=== PATIENT | female | born 1975 | race Caucasian/White ===

== ENCOUNTER 2024-04-01 04:22 | Emergency (ER) | payer BC, SELFPAY ==
--- OUTSIDE RECORDS SUMMARY | 2024-04-01 04:24 | XMS_ITS | Referral Summary ---
Author Organization [place] Address [address] [facility] 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 Active Ascorbic Acid (VITAMIN C PO) Vitamin C with Iron, OTC Active omeprazole (PRILOSEC) 40 MG capsule Take 20 mg by mouth 2 times daily Active clonazePAM (KLONOPIN) 0.5 MG tablet Take 1 tablet (0.5 mg) by mouth as needed for anxiety 0 Active levothyroxine (SYNTHROID/LEVOTHR OID) 150 MCG tablet Take 1 tablet by mouth daily 3 Active amitriptyline (ELAVIL) 10 MG tablet Take 1 tablet by mouth daily 3 Active metFORMIN (GLUCOPHAGE XR) 500 MG 24 hr tablet Take 4 tablets by mouth daily 3 Active losartan (COZAAR) 50 MG tablet Take 1 tablet by mouth daily 3 Active lamoTRIgine (LAMICTAL) 100 MG tabletIndications: 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),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 Provider to review Generalized nonconvulsive ep ilepsy with intractable epilepsy 08/03/2012 Generalized anxiety disorder 08/03/2012 Resolved Problems Problem Noted Date Diagnosed Date Resolved Date Paronychia 08/03/2012 08/03/2012 Immunizations Name Administration Dates Next Due COVID-19 Monovalent 18+ (Moderna) 01/27/2021,01/2021,05/08/2020 DTAP (<7y) 04/03/1979, 9,01/24/1978, 978 Influenza (IIV3) PF 11/23/2009 Influenza Vaccine >6 months,quad, PF 11/2018,03/30/2018,12/23/2016, 015 MMR 01/30/1979 OPV, trivalent, live 04/03/1979,01/24/1978,11/25 TDAP Vaccine (Adacel) 10/04/2016 Social History Tobacco Use Types Packs/Day Years Used Date Smoking Tobacco: Never Smokeless Tobacco: Never Tobacco Cessation:Counseling Given: No Alcohol Use Standard Drinks/Week Comments Not Asked 0 (1 standard drink = 0.6 oz pur e alcohol) PHQ-2 Answer Date Recorded PHQ-2 Score 1 01/29/2024 Adolescent Education Answer Date Record ed Getting School Help Needed Not on file 12/09 Comments No Sex and Gender Information Value Date Recorded Sex Assigned at Female 05/03/2020 3:04 PM TEACHING DIETITIAN Legal Sex Female 3:38 AM TEACHING DIETITIAN Gender Identity Female 05/03/2020 3:04 PM TEACHING DIETITIAN Sexual Orientation Straight 05/03/2020 3: 04 PM TEACHING DIETITIAN Last Filed Vital Signs Vital Sign Reading Time Taken Comments Blood Pressure 129/83 01/29/2024 8:25 AM TEACHING DIETITIAN Pulse 95 01/29/2024 8:25 AM TEACHING DIETITIAN Temperature 36.4 C (97.5 F) 01/29/2024 8:25 AM TEACHING DIETITIAN Respiratory Rate 16 01/29/2024 8:25 AM TEACHING DIETITIAN Oxygen Saturation 98% 01/29/2024 8:25 AM TEACHING DIETITIAN Inhaled Oxygen Concentration - - Weight 143.7 kg (316 lb 12.8 oz) 01/29/2024 8:25 AM TEACHING DIETITIAN Height 172.7 cm (5' 8) 06/20/2022 3:36 PM CDT Body Mass Index 48.17 06/20/2022 3:36 PM CDT Plan of Treatment Upcoming Encounters Date Type Department Care Team (Late st Contact Info) Description 01/28/2025 9:15 AM TEACHING DIETITIAN Office Visit [facility] [address] [facility] [address] [place] [address] Estefania Alvarado PA-C [facility] [address] [facility] [address] [place] [address] Procedures Procedure Name Priority Date/Time Associated Diagnosis Comments LAMOTRIGINE LEVEL Routine 01/29/2024 9:3 0 AM TEACHING DIETITIAN 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) COMPREHENSIVE METABOLIC PANEL Routine 11/16/2015 3:13 PM CDT 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 Adverse effects may include dizziness, somnolence, nausea and vomiting. Performed By: [facility] [address] [place] [address] Cloth Sander: Jesse Case MD, PhD CLIA Number: [id number] Blood STRUCTURE OF LEFT UPPER LIMB / Unknown Venipuncture / Unknown 01/29/2024 9:30 AM TEACHING DIETITIAN 01/29/2024 5:30 PM TEACHING DIETITIAN Estefania Alvarado PA-C LAB - BLOOD ORDERABLES F inal Result [facility] [address] [place] [id number], [facility] [phone] * (ABNORMAL) Comprehensive metabolic panel (11/16/2015 3:13 PM CDT) Pathologist [facility] Sodium 138 133 - 144 mmol/L [facility] Potassium 4.1 3.4 - 5.3 mmol/L [facility] Chloride 104 94 - 109 mmol/L [facility] Carbon Dioxide 24 20 - 32 mmol/L [facility] Anion Gap 10 3 - 14 mmol/L [facility] Glucose 113(H) 70 - 99 mg/dL [facility] Urea Nitrogen 13 7 - 30 mg/dL [facility] Creatinine 0.87 0.52 - 1.04 mg/dL [facility] GFR Estimate 73 >60 mL/min/1.7 m2 [facility] Comment:Non GFR Calc GFR Estimate If Black 88 >60 mL/min/1.7 m2 [facility] Comment: GFR Calc Calcium 8.9 8.5 - 10.1 mg/dL [facility] Bilirubin Total 0.6 0.2 - 1.3 mg/dL [facility] Albumin 4.0 3.4 - 5.0 g/dL [facility] Protein Total 7.4 6.8 - 8.8 g/dL [facility] Alkaline Phosphatase 126 40 - 150 U/L [facility] ALT 27 0 - 50 U/L [facility] AST 18 0 - 45 U/L [facility] Blood specimen (specimen) VENOUS BLOOD / Unknown 11/16/2015 3:13 PM CDT 11/16/2015 9:37 PM CDT us April Crawford MD LAB - BLOOD ORDERABLES Final Res ult [facility] [address] [place] [address] from Last 3 Months or Most Recently Relevant to Health Maintenance Insurance [employer] Care Teams [facility] Relationship Specialty [place] [address] [place], [place] [phone] PCP - General Family Practice 07/21/13 April Crawford MD [address] [facility] [address] [place] [address] Neurology 03/09/15 Estefania Alvarado PASisC [facility] [address] [facility] [address] [place] [address] Assigned Neuroscience Provider 02/16/24
--- OUTSIDE RECORDS SUMMARY | 2024-04-01 04:24 | XMS_ITS | Encounter Summary ---
Author Organization [place] Address [address] [place] [address]. [place] [address] Care Team Providers Care Hand Stamper Name Role Phone Melissa Wilson MD Primary Care Provider + [phone] April Crawford MD Unavailable April Crawford MD Unavailable Estefania Alvarado PA-C Unavailable Encounter Details Date Type Department Care Team (Late st Contact Info) Description 08/07/2022 Telephone [facility] [address], [address] [place] [address] April Crawford MD [address] [facility] [address] [place] [address] Social History Tobacco Use Types Packs/Day Years Used Date Smoking Tobacco: Never Smokeless Tobacco: Never Alcohol Use Standard Drinks/Week Comments Not Asked 0 (1 standard drink = 0.6 oz pur e alcohol) PHQ-2 Answer Date Recorded PHQ-2 Score 1 06/20/2022 Comments No Sex and Gender Information Value Date Recorded Sex Assigned at Female 05/03/2020 3:04 PM OFFLINE EDITOR Legal Sex Female 3:38 AM OFFLINE EDITOR Gender Identity Female 05/03/2020 3:04 PM OFFLINE EDITOR Sexual Orientation Straight 05/03/2020 3: 04 PM OFFLINE EDITOR documented as of this encounter Miscellaneous Notes * Telephone Encounter - Maribel Pereyra - 08/07/2022 4:40 PM CDT Called patient to schedule follow up in a year, left vm documented in this encounter Plan of Treatment Upcoming Encounters Date Type Department Care Team (Late st Contact Info) Description 01/28/2025 9:15 AM OFFLINE EDITOR Office Visit [facility] [address], [address] [place] [address] Estefania Alvarado PA-C [facility] [address] [place], [place] [phone] documented as of this encounter Visit Diagnoses Not on filedocumented in this encounter Additional Health Concerns Assessment Noted Time PHQ-9 Depression Total Score: 4 06/21/19 23 3:38 PM CDT documented as of this encounter Care Teams Hand Stamper Relationship Specialty [place] [address] [place] [address] PCP - General Family Practice 07/21/13 April Crawford MD [address] [address] Neurology 03/09/15 April Crawford MD [address] [place] [address] Assigned Neuroscience Provider 12/17/19 01/16/24 Estefania Alvarado PA-C [facility] [address] [place] [address] Assigned Neuroscience Provider 02/16/24 documented as of this encounter
--- OUTSIDE RECORDS SUMMARY | 2024-04-01 04:24 | XMS_ITS | Clinical Summary ---
Author Organization [place] Address [address] [facility] [place] [address] Care Team Providers Care Turpentine Farmer Name Role Phone Melissa Wilson MD Primary Care Provider + [phone] April Crawford MD Unavailable Estefania Alvarado PA-C Unavailable [phone] Allergies Active Allergy Reactions Criticality Noted Date [...] Diagnosed Date Resolved Date Paronychia 08/03/2012 08/03/2012 Encounters Date Type Department Care Team Description 01/29/2024 8:30 AM MEDIA LIBRARIAN Office Visit [facility] Epilepsy [facility] [address], [address] [place] [address] Estefania Alvarado, PASisC 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); 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) 01/29/2024 Travel 01/27/2024 Travel from Last 3 Months Immunizations Name Administration Dates Next Due COVID-19 [...] Sex Assigned at Female 05/03/2020 3:04 PM MEDIA LIBRARIAN Legal Sex Female 3:38 AM MEDIA LIBRARIAN Gender Identity Female 05/03/2020 3:04 PM MEDIA LIBRARIAN Sexual Orientation Straight 05/03/2020 3: 04 PM MEDIA LIBRARIAN Last Filed Vital Signs Vital Sign Reading Time Taken Comments Blood Pressure 129/83 01/29/2024 8:25 AM MEDIA LIBRARIAN Pulse 95 01/29/2024 8:25 AM MEDIA LIBRARIAN Temperature 36.4 C (97.5 F) 01/29/2024 8:25 AM MEDIA LIBRARIAN Respiratory Rate 16 01/29/2024 8:25 AM MEDIA LIBRARIAN Oxygen Saturation 98% 01/29/2024 8:25 AM MEDIA LIBRARIAN Inhaled Oxygen Concentration - - Weight 143.7 kg (316 lb 12.8 oz) 01/29/2024 8:25 AM MEDIA LIBRARIAN Height 172.7 cm (5' 8) 06/20/2022 3:36 PM CDT Body Mass Index 48.17 06/20/2022 3:36 PM CDT Plan of Treatment Upcoming Encounters Date Type Department Care Team (Late st Contact Info) Description 01/28/2025 9:15 AM MEDIA LIBRARIAN Office Visit [facility] Ep[facility]psy Care [address] [facility] [address] [place] [address] Estefania Alvarado PA-C [facility] [address] [facility] [address] [place] [address] Health Maintenance Due Date Last Done Comments ADVANCE CARE PLANNING 1977 ANNUAL REVIEW OF HM ORDERS 1977 CT COLONOGRAPHY 1977 FIT 1977 FLEX SIG 1977 TSH W/FREE T4 REFLEX 1977 sDNA (Cologuard) 1977 YEARLY PREVENTIVE VISIT 1980 COLONOSCOPY 09/24/1987 COLORECTAL CANCER SCREENING 09/24/1987 HIV SCREENING 1992 HEPATITIS C SCREENING 09/24/1995 HEPATITIS B IMMUNIZATION (1 of 3 - 19+ 3-dose series) 1996 LIPID 2017 GLUCOSE 11/15/2018 11/16/2015, 07/21/2013 PAP 03/30/2021 03/30/2018 COVID-19 Vaccine ( season) 2023 01/27/2021, 06/05/2020, 05/08/2020 INFLUENZA VACCINE (#1) 2023 9, 03/30/2018, 12/23/2016, Additional history exists PHQ-2 (once per calendar year) 2024 01/29/2024, 06/20/2022, 06/20/2022, Additional history exists MAMMO SCREENING 11/10/2025 11/11/2023, 10/25, 03/31/2018 DTAP/TDAP/TD IMMUNIZATION (6 - Td or Tdap) 10/04/2026 10/04/2016, 04/03/1979, 03/28/1978, Additional history exists ZOSTER IMMUNIZATION (1 of 2) 09/24/2027 HPV IMMUNIZATION Aged Out No longer e ligible based on patient's age to complete this topic MENINGITIS IMMUNIZATION Aged Out No l onger eligible based on patient's age to complete this topic Pneumococcal Vaccine: Pediatrics (0 to 5 Years) and At-Risk Patients (6 to 49 Years) Aged Out No longer eligible based on patient's age to complete this topic Procedures Procedure Name Priority Date/Time Associated Diagnosis Comments LAMOTRIGINE LEVEL Routine 01/29/2024 9:3 0 AM MEDIA LIBRARIAN 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) COMPREHENSIVE METABOLIC PANEL Routine 11/16/2015 3:13 PM CDT 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 Adverse effects may include dizziness, somnolence, nausea and vomiting. Performed By: [facility] [address] [place] [address] Maintenance Superintendent: Jesse Case MD, PhD CLIA Number: [id number] Blood STRUCTURE OF LEFT UPPER LIMB / Unknown Venipuncture / Unknown 01/29/2024 9:30 AM MEDIA LIBRARIAN 01/29/2024 5:30 PM MEDIA LIBRARIAN Estefania Alvarado PA-C LAB - BLOOD ORDERABLES F inal Result [facility] [address] [place] [phone], [facility] [phone] * (ABNORMAL) Comprehensive metabolic panel (11/16/2015 3:13 PM CDT) Sodium 138 133 - 144 mmol/L [facility] Potassium 4.1 3.4 - 5.3 mmol/L [facility] Chloride 104 94 - 109 mmol/L [facility] Carbon Dioxide 24 20 - 32 mmol/L [facility] Anion Gap 10 3 - 14 mmol/L [facility] Glucose 113(H) 70 - 99 mg/dL [facility] Urea Nitrogen 13 7 - 30 mg/dL [facility] Creatinine 0.87 0.52 - 1.04 mg/dL [facility] GFR Estimate 73 >60 mL/min/1.7 m2 [facility] Comment:Non GFR Calc GFR Estimate If Black 88 >60 mL/min/1.7 m2 [facility] Comment: GFR Calc Calcium 8.9 8.5 - 10.1 mg/dL [facility] Bilirubin Total 0.6 0.2 - 1.3 mg/dL [facility] Albumin 4.0 3.4 - 5.0 g/dL [facility] Protein Total 7.4 6.8 - 8.8 g/dL [facility] Alkaline Phosphatase 126 40 - 150 U/L [facility] ALT 27 0 - 50 U/L [facility] AST 18 0 - 45 U/L [facility] Blood specimen (specimen) VENOUS BLOOD / Unknown 11/16/2015 3:13 PM CDT 11/16/2015 9:37 PM CDT us April Crawford MD LAB - BLOOD ORDERABLES Final Res ult [facility] [address] [place] [address] from Last 3 Months or Most Recently Relevant to Health Maintenance Insurance [employer] [facility] Care Teams Turpentine Farmer Relationship Specialty [place] [address] [place], [place] [phone] PCP - General Family Practice 07/21/13 April Crawford MD [address] [employer] [facility] [address] [place], [place] [phone] Neurology 03/09/15 Estefania Alvarado PASisC [facility] [address] [facility] [address] [place], [place] [id number] Assigned Neuroscience Provider 02/16/24
--- OUTSIDE RECORDS SUMMARY | 2024-04-01 04:24 | XMS_ITS | Encounter Summary ---
Author Organization [place] Address [address] [place] [address]. [place] [address] Care Team Providers Care Cryptological Technician Name Role Phone Melissa Wilson MD Primary Care Provider + [phone] April Crawford MD Unavailable April Crawford MD Unavailable Estefania Alvarado PA-C Unavailable [phone] Encounter Details Date Type Department Care Team (Late st Contact Info) Description 07/03/2023 Telephone [facility] [address], [address] [place] [address] April Crawford MD [address] [facility] [address] [place] [address] Social History Tobacco Use Types Packs/Day Years Used Date Smoking Tobacco: Never Smokeless Tobacco: Never Alcohol Use Standard Drinks/Week Comments Not Asked 0 (1 standard drink = 0.6 oz pur e alcohol) PHQ-2 Answer Date Recorded PHQ-2 Score 1 06/20/2022 Adolescent Education Answer Date Record ed Getting School Help Needed Not on file 12/09 Comments No Sex and Gender Information Value Date Recorded Sex Assigned at Female 05/03/2020 3:04 PM SENIOR MORTGAGE LOAN PROCESSOR Legal Sex Female 3:38 AM SENIOR MORTGAGE LOAN PROCESSOR Gender Identity Female 05/03/2020 3:04 PM SENIOR MORTGAGE LOAN PROCESSOR Sexual Orientation Straight 05/03/2020 3: 04 PM SENIOR MORTGAGE LOAN PROCESSOR documented as of this encounter Miscellaneous Notes * Telephone Encounter - Humaira Peñaloza - 07/03/2023 11:42 AM CDT Outgoing call, left to schedule follow up with lila. Last seen 05/2022. documented in this encounter Plan of Treatment Upcoming Encounters Date Type Department Care Team (Late st Contact Info) Description 01/28/2025 9:15 AM SENIOR MORTGAGE LOAN PROCESSOR Office Visit [facility] Epilepsy Care [address], [address] [place] [address] Estefania Alvarado PA-C [facility] Epilepsy Care [address] [facility] [address] [place], [place] [address] documented as of this encounter Visit Diagnoses Not on filedocumented in this encounter Additional Health Concerns Assessment Noted Time PHQ-9 Depression Total Score: 4 06/21/19 23 3:38 PM CDT documented as of this encounter Care Teams Cryptological Technician Relationship Specialty [place] [address] [place] [address] PCP - General Family Practice 07/21/13 April Crawford MD [address] [facility] [address] [place] [address] Neurology 03/09/15 April Crawford MD [address] [facility] [address] [place] [address] Assigned Neuroscience Provider 12/17/19 01/16/24 Estefania Alvarado PA-C [facility] Epilepsy Care [address] [facility] [address] [place] [address] Assigned Neuroscience Provider 02/16/24 documented as of this encounter
--- OUTSIDE RECORDS SUMMARY | 2024-04-01 04:24 | XMS_ITS | Encounter Summary ---
Author Organization [place] Address [address] [facility] [place] [address] Care Team Providers Care Clinical Statistics Manager Name Role Phone Melissa Wilson MD Primary Care Provider + [phone] April Crawford MD Unavailable April Crawford MD Unavailable Estefania Alvarado PA-C Unavailable [phone] Encounter Details Date Type Department Care Team (Late st Contact Info) Description 04/19/2021 [facility] Social History Tobacco Use Types Packs/Day Years Used Date Smoking Tobacco: Never Smokeless Tobacco: Never Alcohol Use Standard Drinks/Week Comments Not Asked 0 (1 standard drink = 0.6 oz pur e alcohol) PHQ-2 Answer Date Recorded PHQ-2 Score 0 05/16/2020 Comments No Sex and Gender Information Value Date Recorded Sex Assigned at Female 05/03/2020 3:04 PM UNIVERSITY SERVICES PROGRAM ASSOCIATE Legal Sex Female 3:38 AM UNIVERSITY SERVICES PROGRAM ASSOCIATE Gender Identity Female 05/03/2020 3:04 PM UNIVERSITY SERVICES PROGRAM ASSOCIATE Sexual Orientation Straight 05/03/2020 3: 04 PM UNIVERSITY SERVICES PROGRAM ASSOCIATE documented as of this encounter Plan of Treatment Upcoming Encounters Date Type Department Care Team (Late st Contact Info) Description 01/28/2025 9:15 AM UNIVERSITY SERVICES PROGRAM ASSOCIATE Office Visit M [facility] Epilepsy [facility] [address], [address] [place] [phone] Estefania Alvarado PA-C [facility] [address] [place], [place] [address] documented as of this encounter Visit Diagnoses Not on filedocumented in this encounter Additional Health Concerns Assessment Noted Time PHQ-9 Depression Total Score: 12 016 7:19 AM CDT documented as of this encounter Care Teams Clinical Statistics Manager Relationship Specialty [place] [address] [place] [address] PCP - General Family Practice 07/21/13 April Crawford MD [address] [place] [address] Neurology 03/09/15 April Crawford MD [address] [place] [address] Assigned Neuroscience Provider 12/17/19 01/16/24 Estefania Alvarado PA-C [facility] [address] [place] [address] Assigned Neuroscience Provider 02/16/24 documented as of this encounter
--- OUTSIDE RECORDS SUMMARY | 2024-04-01 04:25 | XMS_ITS | Clinical Summary ---
Author Organization [facility] Address [address], [place] [address] Care Team Providers Care Silk Printer Name Role Phone Unassigned, Provider Primary Care Provider Unava ilable Source Comments You are receiving this document as you are listed as the primary care provider,follow-up provider, or the patient has been referred to you for consultation.This is in compliance with the Medicare andOhio[facility] Cent[facility]aid EHR Incentive Program,which states Providers who transition their patient to another setting of careor provider of care or refers their patient to another provider of care shouldprovide summary care record for each transition of care or referral. [employer] Allergies Active Allergy Reactions Criticality Noted Date Comments Other Runny Nose 03/30/2018 Seasonal allergies Medications Medication Sig Dispensed Refills Start Date End Date Status lamoTRIgine (LAMICTAL) 200 MG tablet Take 200 mg by mouth three times a day. Active omeprazole (PRILOSEC) 40 MG capsule Take 40 mg by mouth daily. Take 1 hour before a meal. Active clonazePAM (KLONOPIN) 0.5 MG tablet Take 0.5 mg by mouth as needed for Anxiety. Active levothyroxine (SYNTHROID) 150 MCG tablet TAKE 1 TABLET BY MOUTH DAILY 6 DAYS PER WEEK, AND 1/2 TABLET ON 1 DAY PER WEEK. 90 Tablet 12/30/2017 Active metFORMIN XR (GLUCOPHAGE XR) 500 MG 24 hour release tablet Take 2 Tablets (1,000 mg) by mouth two times a day. 02/21/2023 Active topiramate (TOPAMAX) 25 MG tablet Take 1 Tablet (25 mg) by mouth two times a day. 03/23/2023 Active clonazePAM (KLONOPIN) 1 MG tablet Take 1 Tablet (1 mg) by mouth daily as needed. 03/27/2023 Active lamoTRIgine (LAMICTAL) 100 MG tablet Take 1 Tablet (100 mg) by mouth daily. 02/21/2023 Active losartan (COZAAR) 50 MG tablet Take 1 Tablet (50 mg) by mouth daily. 02/21/2023 Active amitriptyline (ELAVIL) 10 MG tablet Take 2 Tablets (20 mg) by mouth daily at bedtime. 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 Provider to review Generalized anxiety disorder 08/03/2012 Immunizations Name Administration Dates Next Due DTaP 04/03/1979, 9,01/24/1978,1977 Flu Vac (3+ yrs) 11/23/2009 Influenza IIV4 (Quadrivalent ) 0.5mL (61179) 12/03/2018,03/30/2018,12/23/2016,2014 Influenza, Unspecified Formulation 03/30/2018 MMR 01/30/1979 Moderna Monovalent 12+ 01/27/2021,06/05/2020, OPV, Trivalent (Orimune or tOPV) 04/03/1979,120 02/1977,1977 Tdap 10/04/2016 Social History Tobacco Use Types Packs/Day Years Used Date Smoking Tobacco: Never Smokeless Tobacco: Never Sex and Gender Information Value Date Recorded Sex Assigned at Not on file Gender Identity Not on file Sexual Orientation Not on file Last Filed Vital Signs Vital Sign Reading Time Taken Comments Blood Pressure 156/103 04/03/2023 6:57 PM CALCULATION REVIEWER Pulse 124 04/03/2023 6:57 PM CALCULATION REVIEWER Temperature 37.1 C (98.8 F) 04/03/2023 6:57 PM CALCULATION REVIEWER Respiratory Rate 20 04/03/2023 6:57 PM CALCULATION REVIEWER Oxygen Saturation 100% 04/03/2023 6:57 PM CALCULATION REVIEWER Inhaled Oxygen Concentration - - Weight 133.5 kg (294 lb 6.4 oz) 04/01/2017 4:05 PM CALCULATION REVIEWER Height 175.3 cm (5' 9) 04/01/2017 4:05 PM CALCULATION REVIEWER Body Mass Index 43.48 04/01/2017 4:05 PM CALCULATION REVIEWER Plan of Treatment Health Maintenance Due Date Last Done Comments Colon Cancer Screening Plan Due 1977 Hep C Screening (Preventive Services) 1977 IPV (Polio) (4 of 4 - 4-dose series) 1981 04/03/1979, 01/24/1978, 1977 HIV Screening (Preventive Services) 1993 Adult Preventive Visit 09/24/1995 HepB (1) 1996 Cervical Cancer Screening 03/30/2021 03/30/2018 (Com pleted) Cholesterol 03/30/2023 03/30/2018 (Completed) COVID-19 Vaccine ( season) 2023 01/27/2021, 06/05/2020, 05/08/2020 Influenza (#1) 2023 12/03/2018, 05/2018, 03/30/2018, Additional history exists Mammogram 11/10/2024 11/11/2023, 03/31/2018 DTaP/Tdap/Td (6 - Tdap) 10/04/2026 10/05/19 17, 04/03/1979, 03/28/1978, Additional history exists Zoster/Shingles (1 of 2) 09/24/2027 HepA Aged Out No longer eligi ble based on patient's age to complete this topic Hib Aged Out No longer eligi ble based on patient's age to complete this topic MCV4 Aged Out No longer eligi ble based on patient's age to complete this topic Pneumococcal Aged Out No longer eligi ble based on patient's age to complete this topic Procedures Procedure Name Priority Date/Time Associated Diagnosis Comments MM MAMMOGRAM SCREENING BILAT W 3D OMER W CAD Routine 11/11/2023 2:40 PM CDT from Last 3 Months or Most Recently Relevant to Health Maintenance Results * MM Mammogram Screening Bilat W 3D Omer W CAD (11/11/2023 2:40 PM CDT) Anatomical Region Laterality Modality Breast Bilateral Mammography Impressions 11/12/2023 3:36 PM CDT : ACR BI-RADS Category 1: Negative RECOMMENDATION: Follow Up Imaging in 12 months - Bilateral The results and recommendations of this examination will be communicated to the patient. Narrative 11/12/2023 3:36 PM CDT MM MAMMOGRAM SCREENING BILAT W 3D OMER W CAD performed on 11/11/23 FDA Accredited Facility: [place] [address] Compared to: 03/31/2018 Foreign Image(S) Mammogram Bilateral Screening FINDINGS: Bilateral screening mammogram was performed with the assistance of Computer-Aided Detection and breast tomosynthesis. The breasts are heterogeneously dense, which may obscure small masses. There is no radiographic evidence of malignancy. Leon Engel MD RAD SETH from Last 3 Months or Most Recently Relevant to Health Maintenance Care Teams Silk Printer Relationship Specialty Start Date End Date Unassigned, Provider [address] [place] [address] PCP - General 11/28/99
--- OUTSIDE RECORDS SUMMARY | 2024-04-01 04:25 | XMS_ITS | Clinical Summary ---
Author Organization [facility] Address [place], [place] [address] Care Team Providers Care Special Diet Cook Name Role Phone Tracee Valle DO Primary Care Provider [phone] Allergies Active Allergy Reactions Criticality Noted Date Comments Unlisted Allergen (Include Detail In Comments) Runny Nose 03/30/2018 Seasonal allergies Medications lamoTRIgine (LAMICTAL) 200 mg tablet Take 1 tablet by mouth 3 times daily. 0 03/30/2018 Active lamoTRIgine (LAMICTAL) 100 mg tablet Take 0.5 tablets by mouth 2 times daily. 0 03/30/2018 Active multivitamin (MVI) tablet Take 1 tablet by mouth once daily. 90 tablet 3 03/30/2018 Active clonazePAM (KLONOPIN) 0.5 mg tablet Take 1 tablet by mouth once daily if needed. 0 03/30/2018 Active levothyroxine (SYNTHROID) 150 mcg tablet 04/12/2018 Active omeprazole (PRILOSEC) 20 mg Delayed-Release capsuleIndicatio ns:GERD with esophagitis Take 1 capsule by mouth once daily before a meal. 30 capsule 03/12/2019 Active amitriptyline (ELAVIL) 10 mg tablet Take 20 mg by mouth at bedtime. 06/05/2022 Active topiramate (TOPAMAX) 25 mg tablet Take 25 mg by mouth two times daily. 12/16/2022 Active losartan (COZAAR) 50 mg tablet Take 50 mg by mouth once daily. 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 03/31/2018 Encounters Date Type Department Care Team Description 01/06/2024 Travel from Last 3 Months Immunizations Name Administration Dates Next Due DTaP 04/03/1979,03/28/1978,01/24/1978 ,1977 Influenza, IIV3 (Age >=3 years) 12/23/2016,01/31 Influenza, IIV4 12/03/2018,03/30/2018 MMR 01/30/1979 Oral Polio Vaccine 04/03/1979,01/24/1978, 978 Tdap 10/04/2016 Family History Medical History Relation Name Comments Emphysema Maternal Grandfather Throat cancer Maternal Grandmother Colon polyps Mother Dementia Paternal Grandfather Lung cancer Paternal Grandmother Cancer-breast No Family History Relation Name Status Comments Maternal Grandfather Maternal Grandmother Mother Paternal Grandfather Paternal Grandmother Social History Tobacco Use Types Packs/Day Years Used Date Smoking Tobacco: Never Smokeless Tobacco: Never Alcohol Use Standard Drinks/Week Comments Yes 0 (1 standard drink = 0.6 oz pur e alcohol) social PHQ-2 Answer Date Recorded PHQ-2 TOTAL SCORE 0 03/30/2020 Social Connections Answer Date Recorded Do you often feel lonely or isolated from those around you? 0 06/03/2023 Financial Resource Strain Answer Date R ecorded Difficulty of Paying Living Expenses 3 06/03/2023 Difficulty of Paying Living Expenses Not on file 06/03/2023 Food Insecurity Answer Date Recorded Do you worry your food will run out before you are able to buy more? 1 06/03/2023 Transportation Needs Answer Date Record ed Does lack of transportation keep you from medica l appointments? 1 06/03/2023 Does lack of transportation keep you from work, meetings or getting things that you need? 1 06/03/2023 Housing Stability Answer Date Recorded What is your housing situation today? 1 06/03/2023 Utilities Answer Date Recorded Do you have trouble paying f or utilities (for example, heat, electricity, water, phone)? 1 06/03/2023 Comments No Sex and Gender Information Value Date Recorded Sex Assigned at Female 03/30/2020 9:14 AM MELTER SUPERVISOR Legal Sex Female 6:36 AM MELTER SUPERVISOR Gender Identity Female 03/30/2020 9:14 AM MELTER SUPERVISOR Sexual Orientation Straight 03/30/2020 9: 14 AM MELTER SUPERVISOR Obstetrics History Last Filed Vital Signs Vital Sign Reading Time Taken Comments Blood Pressure 122/86 06/03/2023 2:07 PM CDT Pulse 96 06/03/2023 2:07 PM CDT Temperature 36.7 C (98.1 F) 06/03/2023 2:07 PM CDT Respiratory Rate 15 06/29/2018 3:54 PM CDT Oxygen Saturation 97% 04/04/2023 1:37 PM MELTER SUPERVISOR Inhaled Oxygen Concentration - - Weight 135.6 kg (299 lb) 06/03/2023 2:07 PM CDT Height 172.7 cm (5' 8) 04/04/2023 1:37 PM MELTER SUPERVISOR Body Mass Index 45.46 04/04/2023 1:37 PM MELTER SUPERVISOR Plan of Treatment Upcoming Encounters Date Type Department Care Team (Late st Contact Info) Description 04/01/2024 9:00 AM MELTER SUPERVISOR Office Visit [facility] [address] [place] [address] [place] [address] [place] [address] Health Maintenance Due Date Last Done Comments HIV for age 15-65 1992 Hepatitis C screening for age 18-79 09/24/1995 Depression screening for age 12+ 03/30/2021 03/30/2020, 03/30/2018 Pap test for age 21-65 03/30/2021 03/30/2018 Colonoscopy through age 75 2022 Mammogram for age 45-75 2022 03/31/2018 Lipids for age 45-75 03/30/2023 03/30/2018 COVID-19 vaccine series ( season) 2023 01/27/2021, 06/05/2020, 05/08/2020 Influenza for age 9-49 10/26/2023 9, 03/30/2018, 12/23/2016, Additional history exists BMI (ht and wt on same day) for age 18+ 04/04/2024 04/04/2023, 03/30/2020, 06/29/2018, Additional history exists Tetanus booster 10/04/2026 10/04/2016 Tdap Completed 10/04/2016 Pneumococcal series for age 6-49 Aged Out No longer eligible based on patient's age to complete this topic Procedures Procedure Name Priority Date/Time Associated Diagnosis Comments XR MAMMO BILAT SCREENING Routine 03/31/2018 5:35 PM MELTER SUPERVISOR Breast cancer screening LIPID PANEL W REFLEX MEASURED LDL Routine 03/30/2018 4:42 PM MELTER SUPERVISOR Morbid exogenous obesity (HC) DINKING MACHINE OPERATOR THIN PREP PAP SCREEN IMAGED Routine 03/30/2018 4:19 PM MELTER SUPERVISOR Cervical cancer screening from Last 3 Months or Most Recently Relevant to Health Maintenance Results * XR MAMMO BILAT SCREENING (03/31/2018 5:35 PM MELTER SUPERVISOR) Anatomical Region Laterality Modality BREASTS, Breast Left, Breast Right Bilateral Mammography Impressions 04/01/2018 10:43 AM MELTER SUPERVISOR There is no radiographic evidence for malignancy. Recommend annual mammograms. A lay language report of this examination will be provided to the patient. MAMMOGRAM ASSESSMENT: ACR 1 Negative Narrative 04/01/2018 10:43 AM MELTER SUPERVISOR XR MAMMO BILAT SCREENING [[id number]] CLINICAL HISTORY: This is an asymptomatic 42 y.o. patient. INDICATION FOR EXAM: Mammogram Screening. TECHNIQUE: CC & MLO views were obtained. This digital study was evaluated with the assistance of Computer-Aided Detection. COMPARISON FILM: This is a baseline study. FINDINGS: Mammographically, the breast tissue has scattered fibroglandular densities. There are no dominant masses, suspicious micro calcifications or areas of architectural distortion. us Tracee Valle DO MAMMO Final Resul t * (ABNORMAL) LIPID PANEL W REFLEX MEASURED LDL (03/30/2018 4:42 PM MELTER SUPERVISOR) CHOLESTEROL,TOTAL 137 100 - 199 mg/dL 03/31/2018 4:34 PM MELTER SUPERVISOR [facility] TRIGLYCERIDES 218(H) <150 mg/dL 03/31/2018 4:34 PM MELTER SUPERVISOR [facility] HDL CHOLESTEROL 28(L) >40 mg/dL 9 4:34 PM MELTER SUPERVISOR [facility] NON-HDL CHOLESTEROL 109 <145 mg/dl 03/31/2018 4:34 PM MELTER SUPERVISOR [facility] CHOL/HDL RATIO 4.89(H) <4.50 03/31/2018 4:34 PM MELTER SUPERVISOR [facility] LDL CHOLESTEROL 65 <=130 mg/dL 03/31/2018 4:34 PM MELTER SUPERVISOR [facility] PROVIDER ORDERED STATUS RANDOM 03/31/2018 4:34 PM MELTER SUPERVISOR [facility] Blood BLOOD SPECIMEN / Unknown Venipuncture / Unknown 03/30/2018 4:42 PM MELTER SUPERVISOR 03/30/2018 4:43 PM MELTER SUPERVISOR us Tracee Valle DO CHEMISTRY Final Resul t [facility] [address] [place] [address], * DINKING MACHINE OPERATOR THIN PREP PAP SCREEN IMAGED (03/30/2018 4:19 PM MELTER SUPERVISOR) Case Report Gynecologic Cytology Report Case: [id number] Authorizing Provider: Tracee Valle DO Collected: 03/30/2018 1619 Ordering Location: [facility] Received: 03/30/2018 1636 Clinic First Screen: Arely Vargas Specimen: DINKING MACHINE OPERATOR ThinPrep Vial Screening, Cervical 04/07/2018 2:38 PM MELTER SUPERVISOR [facility] INTERPRETATION/ RESULT NEGATIVE FOR INTRAEPITHELIAL LESION OR MALIGNANCY (NIL) (none) 04/07/2018 2:38 PM MELTER SUPERVISOR [facility] IMEN ADEQUACY Satisfactory for evaluation Endocervical component present 04/07/2018 2:38 PM MELTER SUPERVISOR [facility] HPV REQUEST HPV if ASCUS 04/07/2018 2:38 PM MELTER SUPERVISOR [facility] Date of LMP 03/23/2018 04/07/2018 2:38 PM MELTER SUPERVISOR [facility] Last Pap Date unkown 04/07/2018 2:38 PM MELTER SUPERVISOR [facility] Last Pap Result NIL 9 2:38 PM MELTER SUPERVISOR [facility] Abnormal Pap or [place] Bx in last 5 years No 04/07/2018 2:38 PM MELTER SUPERVISOR [facility] Menstrual Status Regular Periods 04/07/2018 2:38 PM MELTER SUPERVISOR [facility] [place] Bx Done Today No 04/07/2018 2:38 PM MELTER SUPERVISOR [facility] Additional Information None given 04/07/2018 2:38 PM MELTER SUPERVISOR [facility] Automated Review Successful 04/07/2018 2:38 PM MELTER SUPERVISOR [facility] Comment:Specimen processed s uccessfully by automated emblem fuser tender device, ThinPrep Imaging System, [employer] Note The pap test is a screening technique, not a diagnostic procedure. It is used primarily to screen for squamous cancers and precursor lesions. Published studies have shown that it is subject to both false negative and false positive results. The pap test should not be used as the sole means to diagnose or exclude pre-malignant and malignant lesions. Cytology is screened and interpreted at [facility] - [address], [place] [address] and [facility] - [address]; [place] [address] and [facility] - [address]; [place] [address] and [facility] [address]; [place] [address] 04/07/2018 2:38 PM MELTER SUPERVISOR [facility] Other (Cervical) Non-Blood / Unknown 03/30/2018 4:19 PM MELTER SUPERVISOR 03/30/2018 4:36 PM MELTER SUPERVISOR Tracee Valle DO PATHOLOGY/CYTOLOGY Final Re sult [facility] [address] [place] [address], from Last 3 Months or Most Recently Relevant to Health [place] [address] Care Teams Special Diet Cook Relationship Specialty [place] [address] [place], [place] [id number] PCP - General Family Practice 03/30/18
--- OUTSIDE RECORDS SUMMARY | 2024-04-01 04:25 | XMS_ITS | Encounter Summary ---
Author Organization [facility] Address [address] [place] [address]. [place] [address] Care Team Providers Care Utilization Management Nurse Name Role Phone Melissa Wilson MD Primary Care Provider + [phone] April Crawford MD Unavailable April Crawford MD Unavailable Estefania Alvarado PA-C Unavailable Encounter Details Date Type Department Care Team (Late st Contact Info) Description 04/18/2016 [facility] Medical [facility] [address] [place] [address] April Crawford MD [address] [facility] [address] [place] [address] Social History Tobacco Use Types Packs/Day Years Used Date Smoking Tobacco: Never Smokeless Tobacco: Never Alcohol Use Standard Drinks/Week Comments Not Asked 0 (1 standard drink = 0.6 oz pur e alcohol) Comments No Sex and Gender Information Value Date Recorded Sex Assigned at Female 05/03/2020 3:04 PM PATTERN LAYOUT WORKER Legal Sex Female 3:38 AM PATTERN LAYOUT WORKER Gender Identity Female 05/03/2020 3:04 PM PATTERN LAYOUT WORKER Sexual Orientation Straight 05/03/2020 3: 04 PM PATTERN LAYOUT WORKER documented as of this encounter Plan of Treatment Upcoming Encounters Date Type Department Care Team (Late st Contact Info) Description 01/28/2025 9:15 AM PATTERN LAYOUT WORKER Office Visit [facility] [address], [address] [place] [address] Estefania Alvarado PA-C [facility] [address] [facility] [address] [place] [address] documented as of this encounter Visit Diagnoses Not on filedocumented in this encounter Additional Health Concerns Assessment Noted Time PHQ-9 Depression Total Score: 12 016 7:19 AM CDT documented as of this encounter Care Teams Utilization Management Nurse Relationship Specialty [place] [address] [place] [address] PCP - General Family Practice 07/21/13 April Crawford MD [address] [facility] [address] [place] [address] Neurology 03/09/15 April Crawford MD [address] [facility] [address] [place] [address] Assigned Neuroscience Provider 12/17/19 01/16/24 Estefania Alvarado PA-C [facility] [address] [facility] [address] [place] [address] Assigned Neuroscience Provider 02/16/24 documented as of this encounter
--- OUTSIDE RECORDS SUMMARY | 2024-04-01 04:25 | XMS_ITS | Encounter Summary ---
Author Organization [facility] Address [address] [place] [address]. [place] [address] Care Team Providers Care Supervisor Cab Name Role Phone Melissa Wilson MD Primary Care Provider + [phone] April Crawford MD Unavailable April Crawford MD Unavailable Estefania Alvarado PA-C Unavailable Encounter Details Date Type Department Care Team (Late st Contact Info) Description 05/08/2021 MyC Medical Advice [facility] [address] [place] [address] Kelsi Hou, XIOMARA Social History Tobacco Use Types Packs/Day Years Used Date Smoking Tobacco: Never Smokeless Tobacco: Never Alcohol Use Standard Drinks/Week Comments Not Asked 0 (1 standard drink = 0.6 oz pur e alcohol) PHQ-2 Answer Date Recorded PHQ-2 Score 0 05/16/2020 Comments No Sex and Gender Information Value Date Recorded Sex Assigned at Female 05/03/2020 3:04 PM DEPUTY DIRECTOR OF FINANCE Legal Sex Female 3:38 AM DEPUTY DIRECTOR OF FINANCE Gender Identity Female 05/03/2020 3:04 PM DEPUTY DIRECTOR OF FINANCE Sexual Orientation Straight 05/03/2020 3: 04 PM DEPUTY DIRECTOR OF FINANCE documented as of this encounter Plan of Treatment Upcoming Encounters Date Type Department Care Team (Late st Contact Info) Description 01/28/2025 9:15 AM DEPUTY DIRECTOR OF FINANCE Office Visit [facility] [address] [place] [address] Estefania Alvarado PA-C [facility] [address] [facility] [address] [place] [address] documented as of this encounter Visit Diagnoses Not on filedocumented in this encounter Additional Health Concerns Assessment Noted Time PHQ-9 Depression Total Score: 12 016 7:19 AM CDT documented as of this encounter Care Teams Supervisor Cab Relationship Specialty Start [place] [address] [place] [address] PCP - General Family Practice 07/21/13 April Crawford MD [address] [facility] [address] [place] [address] Neurology 03/09/15 April Crawford MD [address] [facility] [address] [place] [address] Assigned Neuroscience Provider 12/17/19 01/16/24 Estefania Alvarado PA-C [facility] [address] [facility] [address] [place] [address] Assigned Neuroscience Provider 02/16/24 documented as of this encounter
[2024-04-01 04:28] VITALS: BP 129/108; PULSE 137; RESP 24; TEMP 36.6; O2SAT 99; BMI 42.8
--- NOTE | 2024-04-01 04:55 | ED.GENADULT ---
HPI - General Adult General Chief complaint: Shortness of Breath/Dyspnea Stated complaint: wheezing, shortness of breath Time Seen by Provider: 04/01/24 04:36 Source: patient Mode of arrival: ambulatory Limitations: no limitations History of Present Illness HPI narrative: 48-year-old female with no prior significant pulmonary history presents to the emergency department for evaluation of shortness of breath and cough. Cough has been present for the past 3-4 days. No fever. Cough is nonproductive. No hemoptysis. No history of PE. 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 She wonders if this puts her at higher risk of complication. She feels more short of breath at rest. Feels like she is wheezing though she does not have a history of asthma. She points to the upper chest/lower throat area when I ask her where it feels like she is wheezing. Not immunocompromised. Tried Mucinex at home, found it ineffective. No chest pain or cardiac symptoms. Past medical history notable for hypothyroidism and this neurological throat anomaly. Nonsmoker. ROS notable for the respiratory symptoms as well as nasal congestion postnasal drip. Otherwise benign times 12 systems Related Data Home Medications ?Medication ?Instructions ?Recorded ?Confirmed amitriptyline 10 mg tablet 20 mg PO QPM 04/01/24 04/01/24 levothyroxine 150 mcg tablet mcg DAILY 04/01/24 Allergies Allergy/AdvReac Type Severity Reaction Status Date / Time No Known Drug Allergies Allergy Verified 04/01/24 04:30 [facility] Social History Smoking Status: Never smoker How often do you have a drink containing alcohol: never AUDIT-C Alcohol total score: 0 Non-prescribed substance use: denies use Exam Const: Vital Signs, click to edit/add: Vital Signs - 24 hr 04/01/24 04:28 04/01/24 05:27 Temperature 97.8 F 97.8 F Pulse Rate [Pulse Oximeter] 137 H 112 H Respiratory Rate 24 24 Blood Pressure [Ri ght Upper Arm] 129/108 H 135/89 Pulse Oximetry 99 99 Oxygen Delivery Me thod Room Air Room Air Documenting provider has reviewed patient's vital signs: yes Common normals: no apparent distress General appearance: cooperative Other: Anxious but redirectable. HENMT: Common normals: normocephalic, moist oral mucous membranes and oropharynx normal Head and scalp: normocephalic Other: Mild nasal congestion and clear mucus postnasal drip Eye: Common normals: conjunctivae normal General eye: normal appearance of both eyes Conjunctiva: conjunctiva(e) normal Neck & C-Spine: Common normals: full ROM and no lymphadenopathy Resp: Common normals: normal respiratory effort, no use of accessory muscles and clear to auscultation bilaterally Effort & inspection: able to speak in complete sentences Auscultation: clear to auscultation bilaterally Other: Very mild coarse upper airway sounds but the lungs themselves are crystal clear. Cardio: Common normals: regular rate, regular rhythm, S1 normal heart sound and S2 normal heart sound Rate: regular rate Rhythm: regular rhythm Heart sounds: S1 normal and S2 normal Extremity: Common normals: normal to inspection and normal capillary refill Psych: Attitude: engaged Activity/motor behavior: appropriate eye contact Insight: fair Judgement: fair Skin: Common normals: no rashes or lesions noted General skin exam: no rashes or lesions noted Course Course ED Course: 48-year-old female with cough and reported shortness of breath. Exam is benign with the exception of unexplained tachycardia. Because of this, will perform complete workup including EKG, troponin, D-dimer, basic labs and chest x-ray. Await findings. Will give DuoNeb to see if the ipratropium help loosen this feeling of congestion. Viral swabs pending. Differential diagnosis including acute cardiac process, pulmonary embolism, pneumonia, bronchospasm, bronchitis, most likely mild upper respiratory infection. Reevaluation(s) Time of Reevaluation #1: 05:40 Reevaluation #1: Symptoms stable. Patient has not had any hypoxia. Resting heart rate has come down to around 110. Labs are reassuring. Results communicated in person to patient. Chest x-ray reassuring as well. Positive for influenza a which would explain her symptoms. Counseled on typical course of illness, help the cough can persist for up to a few weeks. Alarm symptoms reviewed that would warrant ED presentation. Written instructions provided. Vital Signs Vital signs: Initial Vital Signs Respiratory Effort Normal, Spontaneous, Non-Labored 04/01/24 04:26 Respiratory Depth Normal 04/01/24 04:26 Vital Signs Temperature 97.8 F 04/01/24 04:28 Pulse Rate 137 H 04/01/24 04:28 Respiratory Rate 24 04/01/24 04:28 Blood Pressure 129/108 H 04/01/24 04:28 Pulse Oximetry 99 04/01/24 04:28 Oxygen Delivery Method Room Air 04/01/24 04:28 Temperature 97.8 F 04/01/24 05:27 Pulse Rate 112 H 04/01/24 05:27 Respiratory Rate 24 04/01/24 05:27 Blood Pressure 135/89 04/01/24 05:27 Pulse Oximetry 99 04/01/24 05:27 Oxygen Delivery Method Room Air 04/01/24 05:27 Medications Administered Medications: Discontinued Medications Generic Name Dose Route Start Last Admin Trade Name Freq PRN Reason Stop Dose Admin Albuterol/Ipratropium 1 neb 04/01/24 04:46 04/01/24 04:59 Iprat-Albut 0.5-2.5 Mg/3 Ml Neb IH 04/01/24 04:47 1 neb ONCE ONE Administration Medical Decision Making Lab Data Lab results reviewed: Yes I reviewed the patient's lab results Lab results narrative: No significant leukocytosis, positive for influenza A. Borderline D-dimer is not thought to be clinically significant for this BMI and age. Remainder of labs reassuring. Labs: Lab Results 04/01/24 04/01/24 04/01/24 Range/Units 04:31 05:10 05:20 WBC 5.36 (4.50-11.00) K/uL RBC 4.87 (4.00-5.20) m/uL Hgb 12.0 (12.0-16.0) gm/dL Hct 38.2 (33.0-51.0) % MCV 78 L (80-100) fL MCH 25 L (26-34) pg MCHC 31 L (32-36) gm/dL RDW Coeff of Oksana 16.3 H (11.5-15.5) % Plt Count 255 (140-440) K/uL Neut % (Auto) 63.2 (42.0-72.0) % Lymph % (Auto) 23.9 (20-44) % Jenkins % (Auto) 11.9 H (0.0-11.0) % Eos % (Auto) 0.2 (0.0-7.0) % Baso % (Auto) 0.2 (0.0-3.0) % Neut # (Auto) 3.39 (1.7-7.0) K/uL Lymph # (Auto) 1.28 (0.90-2.90) K/uL Jenkins # (Auto) 0.60 (0.00-0.90) K/UL Eos # (Auto) 0.01 (0.00-0.50) K/uL Baso # (Auto) 0.01 (0.00-0.30) K/uL Abs Immat Gran (auto) 0.03 (0.00-0.30) K/uL Imm/Tot Granulo (auto) 0.6 % D-Dimer Quant (PE/DVT) 0.53 H (0.00-0.50) ug/ml Sodium 137 (135-149) mmol/L Potassium 4.1 (3.6-5.1) mmol/L Chloride 107 (96-114) mmol/L Carbon Dioxide 18 L (20-32) mmol/L Anion Gap 12 (7-15) mEq/L BUN 15 (5-24) mg/dL Creatinine 0.9 (0.5-1.5) mg/dL Estimated Creat Clear 81.63 Estimated GFR 80 ml/min Glucose 132 H (60-115) mg/dL Calcium 9.0 (8.4-10.6) mg/dL C-Reactive Protein 2.7 H (0.5-1.0) mg/dL Urine Color Yellow (Yellow) Urine Appearance Clear (Clear) Urine pH 5.5 (5.0-8.5) Ur Specific Empire 1.025 (1.000-1.030) Urine Protein 1+ A (Negative) Urine Glucose (UA) Negative (Negative) Urine Ketones Trace A (Negative) Urine Blood Trace-intact A (Negative) Urine Nitrite Negative (Negative) Urine Bilirubin Negative (Negative) Urine Urobilinogen 0.2 (0.2-1.0) Ur Leukocyte Esterase Trace A (Negative) Urine RBC 0-2 (0-2) Urine WBC 2-5 (0-5) Ur Squamous Epith Cells Moderate A (None-Few) Amorphous Sediment Few A (None) Urine Bacteria Moderate A (None) Urine HCG, Qual Negative (Negative) SARS-CoV-2 (PCR) Negative SARS-CoV-2 (Negative) Influenza Type A (PCR) POSITIVE PCR FLU A A (Negative) Influenza Type B (PCR) Negative PCR FLU B (Negative) RSV (PCR) Negative PCR RSV (Negative) POC Troponin I 0.00 L (0.01-0.04) ng/ml Imaging Data Chest x-ray: Attestation: I have reviewed the pertinent imaging results. My impression: Normal chest x-ray Radiologist's impression: IMPRESSION: No acute findings. ECG Data Attestation: I personally reviewed and interpreted this ECG as follows: Prior ECG tracings: not available for review Interpretation: Sinus rhythm with tachycardia at 117 beats per minute.. Normal intervals and axis. No significant ST or T-wave abnormalities. Discharge Plan Discharge Clinical Impression: Influenza Patient Disposition: Home, Self-Care Condition: Stable Instructions: Influenza (DC) Additional Instructions: As we discussed, your tests are positive for influenza, x-ray and remainder of labs are all reassuring. Drink plenty of fluids, return to the ED for any severe shortness of breath, especially with exertion, severe weakness or coughing up blood. Both symptoms should penny within a couple more days but cough may persist for up to a couple of weeks. Follow-up with your primary care provider if things are not improving in this time course. Activity Level: No Restrictions Discharge Diet: Regular Prescriptions: No Action amitriptyline 10 mg tablet 20 mg PO QPM levothyroxine 150 mcg tablet DAILY Follow Up/Referrals: Lilibeth Crawford PA-C [Primary Care Provider] - Stand Alone Forms: Write.my Info Instructions
[2024-04-01] MEDS: IPRAT-ALBUT 0.5-2.5 MG/3 ML NEB 1 NEB IH (04:59)
--- OUTSIDE RECORDS SUMMARY | 2024-04-01 05:09 | XMS_ITS | Referral Summary ---
Author Organization [place] Address [address] [facility] [place] [address] Care Team Providers Care Social Service Assistant Name Role Phone Melissa Wilson MD Primary Care Provider + [phone] April Crawford MD Unavailable Estefania Alvarado PA-C Unavailable [phone] Encounters Date Type Department Care Team Description 01/29/2024 Travel 01/29/2024 8:30 AM INGREDIENT MIXER Office Visit M [facility] [address], [address] [place] [phone] Estefania Alvarado PA-C Generalized nonconvulsive epilepsy with [...] Sex Assigned at Female 05/03/2020 3:04 PM INGREDIENT MIXER Legal Sex Female 3:38 AM INGREDIENT MIXER Gender Identity Female 05/03/2020 3:04 PM INGREDIENT MIXER Sexual Orientation Straight 05/03/2020 3: 04 PM INGREDIENT MIXER Last Filed Vital Signs Vital Sign Reading Time Taken Comments Blood Pressure 129/83 01/29/2024 8:25 AM INGREDIENT MIXER Pulse 95 01/29/2024 8:25 AM INGREDIENT MIXER Temperature 36.4 C (97.5 F) 01/29/2024 8:25 AM INGREDIENT MIXER Respiratory Rate 16 01/29/2024 8:25 AM INGREDIENT MIXER Oxygen Saturation 98% 01/29/2024 8:25 AM INGREDIENT MIXER Inhaled Oxygen Concentration - - Weight 143.7 kg (316 lb 12.8 oz) 01/29/2024 8:25 AM INGREDIENT MIXER Height 172.7 cm (5' 8) 06/20/2022 3:36 PM CDT Body Mass Index 48.17 06/20/2022 3:36 PM CDT Plan of Treatment Upcoming Encounters Date Type Department Care Team (Late st Contact Info) Description 01/28/2025 9:15 AM INGREDIENT MIXER Office Visit M [facility] Ep[facility]psy Care [address] [place] [address] Estefania Alvarado PA-C 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 Adverse effects may include dizziness, somnolence, nausea and vomiting. Performed By: [facility] [address] [place] [address] Multifocal Button Inspector: Jesse Case MD, PhD CLIA Number: [id number] Blood STRUCTURE OF LEFT UPPER LIMB / Unknown Venipuncture / Unknown 01/29/2024 9:30 AM INGREDIENT MIXER 01/29/2024 5:30 PM INGREDIENT MIXER Estefania Alvarado PA-C LAB - BLOOD ORDERABLES F inal Result [employer] [address] [place] [phone], [facility] [phone] * (ABNORMAL) Comprehensive metabolic panel (11/16/2015 3:13 PM CDT) Pathologist [facility] Sodium 138 133 - 144 mmol/L [facility] Potassium 4.1 3.4 - 5.3 mmol/L [facility] Chloride 104 94 - 109 mmol/L [facility] Carbon Dioxide 24 20 - 32 mmol/L [facility] Anion Gap 10 3 - 14 mmol/L [facility] Glucose 113(H) 70 - 99 mg/dL [facility] Urea Nitrogen 13 7 - 30 mg/dL [facility] Creatinine 0.87 0.52 - 1.04 mg/dL [facility] GFR Estimate 73 >60 mL/min/1.7 m2 [facility] Comment:Non GFR Calc GFR Estimate If Black 88 >60 mL/min/1.7 m2 [facility] Comment: GFR Calc Calcium 8.9 8.5 - 10.1 mg/dL [facility] Bilirubin Total 0.6 0.2 - 1.3 mg/dL [facility] Albumin 4.0 3.4 - 5.0 g/dL [facility] Protein Total 7.4 6.8 - 8.8 g/dL [facility] Alkaline Phosphatase 126 40 - 150 U/L [facility] ALT 27 0 - 50 U/L [facility] AST 18 0 - 45 U/L [facility] Blood specimen (specimen) VENOUS BLOOD / Unknown 11/16/2015 3:13 PM CDT 11/16/2015 9:37 PM CDT us April Crawford MD LAB - BLOOD ORDERABLES Final Res ult [facility] [address] [place] [address] from Last 3 Months or Most Recently Relevant to Health Maintenance Insurance [employer] Care Teams Social Service Assistant Relationship Specialty [place] [address] [place], [place] [phone] PCP - General Family Practice 07/21/13 April Crawford MD [address] [facility] [address] [place] [address] Neurology 03/09/15 Estefania Alvarado PASisC [facility] [address] [facility] [address] [place] [address] Assigned Neuroscience Provider 02/16/24
--- OUTSIDE RECORDS SUMMARY | 2024-04-01 05:09 | XMS_ITS | Clinical Summary ---
Author Organization [place] Address [address] [facility] [place] [address] Care Team Providers Care Fiber Artist Name Role Phone Melissa Wilson MD Primary Care Provider + [phone] April Crawford MD Unavailable Estefania Alvarado PA-C Unavailable [phone] Allergies Active Allergy Reactions Criticality Noted Date [...] Department Care Team Description 01/29/2024 8:30 AM DOUBLE END TENONER SETTER Office Visit M [facility] [address], [address] [place] [address] Estefania Alvarado, PASisC Generalized nonconvulsive epilepsy with [...] Sex Assigned at Female 05/03/2020 3:04 PM DOUBLE END TENONER SETTER Legal Sex Female 3:38 AM DOUBLE END TENONER SETTER Gender Identity Female 05/03/2020 3:04 PM DOUBLE END TENONER SETTER Sexual Orientation Straight 05/03/2020 3: 04 PM DOUBLE END TENONER SETTER Last Filed Vital Signs Vital Sign Reading Time Taken Comments Blood Pressure 129/83 01/29/2024 8:25 AM DOUBLE END TENONER SETTER Pulse 95 01/29/2024 8:25 AM DOUBLE END TENONER SETTER Temperature 36.4 C (97.5 F) 01/29/2024 8:25 AM DOUBLE END TENONER SETTER Respiratory Rate 16 01/29/2024 8:25 AM DOUBLE END TENONER SETTER Oxygen Saturation 98% 01/29/2024 8:25 AM DOUBLE END TENONER SETTER Inhaled Oxygen Concentration - - Weight 143.7 kg (316 lb 12.8 oz) 01/29/2024 8:25 AM DOUBLE END TENONER SETTER Height 172.7 cm (5' 8) 06/20/2022 3:36 PM CDT Body Mass Index 48.17 06/20/2022 3:36 PM CDT Plan of Treatment Upcoming Encounters Date Type Department Care Team (Late st Contact Info) Description 01/28/2025 9:15 AM DOUBLE END TENONER SETTER Office Visit M [facility] Ep[facility] Care [address] [place] [address] Estefania Alvarado PA-C [facility] [address] [facility] [address] [place] [address] Health Maintenance Due Date Last Done Comments [...] LAMOTRIGINE LEVEL Routine 01/29/2024 9:3 0 AM DOUBLE END TENONER SETTER 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) COMPREHENSIVE METABOLIC PANEL Routine 11/16/2015 3:13 PM CDT 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 Adverse effects may include dizziness, somnolence, nausea and vomiting. Performed By: [facility] [address] [place] [address] [employer] Farmworker: Jesse Case MD, PhD CLIA Number: [id number] Blood STRUCTURE OF LEFT UPPER LIMB / Unknown Venipuncture / Unknown 01/29/2024 9:30 AM DOUBLE END TENONER SETTER 01/29/2024 5:30 PM DOUBLE END TENONER SETTER Estefania Alvarado PA-C LAB - BLOOD ORDERABLES F inal Result [employer] [facility] [address] [place] [phone], [facility] [phone] * (ABNORMAL) Comprehensive metabolic panel (11/16/2015 3:13 PM CDT) Sodium 138 133 - 144 mmol/L [facility] Potassium 4.1 3.4 - 5.3 mmol/L [facility] Chloride 104 94 - 109 mmol/L [facility] Carbon Dioxide 24 20 - 32 mmol/L [facility] Anion Gap 10 3 - 14 mmol/L [facility] Glucose 113(H) 70 - 99 mg/dL [facility] Urea Nitrogen 13 7 - 30 mg/dL [facility] Creatinine 0.87 0.52 - 1.04 mg/dL [facility] GFR Estimate 73 >60 mL/min/1.7 m2 [facility] Comment:Non GFR Calc GFR Estimate If Black 88 >60 mL/min/1.7 m2 [facility] Comment: GFR Calc Calcium 8.9 8.5 - 10.1 mg/dL [facility] Bilirubin Total 0.6 0.2 - 1.3 mg/dL [facility] Albumin 4.0 3.4 - 5.0 g/dL [facility] Protein Total 7.4 6.8 - 8.8 g/dL [facility] Alkaline Phosphatase 126 40 - 150 U/L [facility] ALT 27 0 - 50 U/L [facility] AST 18 0 - 45 U/L [facility] Blood specimen (specimen) VENOUS BLOOD / Unknown 11/16/2015 3:13 PM CDT 11/16/2015 9:37 PM CDT us April Crawford MD LAB - BLOOD ORDERABLES Final Res ult [facility] [address] [place] [address] from Last 3 Months or Most Recently Relevant to Health Maintenance Insurance [employer] [facility] Care Teams Fiber Artist Relationship Specialty [place] [address] [place], [place] [phone] PCP - General Family Practice 07/21/13 April Crawford MD [address] [email or web address] [facility] [address] [place], [place] [phone] Neurology 03/09/15 Estefania Alvarado PASisC [facility] [address] [employer] [facility] [address] [place], [place] [id number] Assigned Neuroscience Provider 02/16/24
--- OUTSIDE RECORDS SUMMARY | 2024-04-01 05:09 | XMS_ITS | Encounter Summary ---
Author Organization [place] Address [address] [place] [address]. [place] [address] Care Team Providers Care Landscape Architecture Teacher Name Role Phone Melissa Wilson MD Primary Care Provider + [phone] April Crawford MD Unavailable April Crawford MD Unavailable Estefania Alvarado PA-C Unavailable Encounter Details Date Type Department Care Team (Late st Contact Info) Description 08/07/2022 Telephone [facility] [address], [address] [place] [address] April Crawford MD [address] [facility] [address] [place] [address] Social History Tobacco Use Types Packs/Day Years Used Date Smoking Tobacco: Never Smokeless Tobacco: Never Alcohol Use Standard Drinks/Week Comments Not Asked 0 (1 standard drink = 0.6 oz pur e alcohol) PHQ-2 Answer Date Recorded PHQ-2 Score 1 06/20/2022 Comments No Sex and Gender Information Value Date Recorded Sex Assigned at Female 05/03/2020 3:04 PM POULTRY PROCESSING SUPERVISOR Legal Sex Female 3:38 AM POULTRY PROCESSING SUPERVISOR Gender Identity Female 05/03/2020 3:04 PM POULTRY PROCESSING SUPERVISOR Sexual Orientation Straight 05/03/2020 3: 04 PM POULTRY PROCESSING SUPERVISOR documented as of this encounter Miscellaneous Notes * Telephone Encounter - Maribel Pereyra - 08/07/2022 4:40 PM CDT Called patient to schedule follow up in a year, left vm documented in this encounter Plan of Treatment Upcoming Encounters Date Type Department Care Team (Late st Contact Info) Description 01/28/2025 9:15 AM POULTRY PROCESSING SUPERVISOR Office Visit [facility] [address], [address] [place] [address] Estefania Alvarado PA-C [facility] [address] [place], [place] [phone] documented as of this encounter Visit Diagnoses Not on filedocumented in this encounter Additional Health Concerns Assessment Noted Time PHQ-9 Depression Total Score: 4 06/21/19 23 3:38 PM CDT documented as of this encounter Care Teams Landscape Architecture Teacher Relationship Specialty Start [place] [address] [place] [address] PCP - General Family Practice 07/21/13 April Crawford MD [address] [address] Neurology 03/09/15 April Crawford MD [address] [place] [address] Assigned Neuroscience Provider 12/17/19 01/16/24 Estefania Alvarado PA-C [facility] [address] [place] [address] Assigned Neuroscience Provider 02/16/24 documented as of this encounter
--- OUTSIDE RECORDS SUMMARY | 2024-04-01 05:09 | XMS_ITS | Encounter Summary ---
Author Organization [place] Address [address] [place] [address] Care Team Providers Care Executive Communications Manager Name Role Phone Melissa Wilson MD Primary Care Provider + [phone] April rCawford MD Unavailable April Crawford MD Unavailable Estefania Alvarado PA-C Unavailable [phone] Encounter Details Date Type Department Care Team (Late st Contact Info) Description 04/19/2021 [facility]C [facility] Social History Tobacco Use Types Packs/Day Years Used Date Smoking Tobacco: Never Smokeless Tobacco: Never Alcohol Use Standard Drinks/Week Comments Not Asked 0 (1 standard drink = 0.6 oz pur e alcohol) PHQ-2 Answer Date Recorded PHQ-2 Score 0 05/16/2020 Comments No Sex and Gender Information Value Date Recorded Sex Assigned at Female 05/03/2020 3:04 PM SUPERVISOR BLOOD Legal Sex Female 3:38 AM SUPERVISOR BLOOD Gender Identity Female 05/03/2020 3:04 PM SUPERVISOR BLOOD Sexual Orientation Straight 05/03/2020 3: 04 PM SUPERVISOR BLOOD documented as of this encounter Plan of Treatment Upcoming Encounters Date Type Department Care Team (Late st Contact Info) Description 01/28/2025 9:15 AM SUPERVISOR BLOOD Office Visit M [facility] Epilepsy [facility] [address], [address] [place] [phone] Estefania Alvarado PA-C [facility] [address] [place], [place] [address] documented as of this encounter Visit Diagnoses Not on filedocumented in this encounter Additional Health Concerns Assessment Noted Time PHQ-9 Depression Total Score: 12 016 7:19 AM CDT documented as of this encounter Care Teams Executive Communications Manager Relationship Specialty [place] [address] [place] [address] PCP - General Family Practice 07/21/13 April Crawford MD [address] [place] [address] Neurology 03/09/15 April Crawford MD [address] [place] [address] Assigned Neuroscience Provider 12/17/19 01/16/24 Estefania Alvarado PA-C [facility] [address] [place] [address] Assigned Neuroscience Provider 02/16/24 documented as of this encounter
--- OUTSIDE RECORDS SUMMARY | 2024-04-01 05:09 | XMS_ITS | Encounter Summary ---
Author Organization [place] Address [address] [place] [address]. [place] [address] Care Team Providers Care Veneer Measurer Name Role Phone Melissa Wilson MD Primary Care Provider + [phone] April Crawford MD Unavailable April Crawford MD Unavailable Estefania Alvarado PA-C Unavailable [phone] Encounter Details Date Type Department Care Team (Late st Contact Info) Description 07/03/2023 Telephone [facility] [address], [address] [place] [address] April Crawford MD [address] [facility] [address] [place] [address] Social History Tobacco Use Types [...] Sex Assigned at Female 05/03/2020 3:04 PM METALLIC YARN SLITTING MACHINE OPERATOR Legal Sex Female 3:38 AM METALLIC YARN SLITTING MACHINE OPERATOR Gender Identity Female 05/03/2020 3:04 PM METALLIC YARN SLITTING MACHINE OPERATOR Sexual Orientation Straight 05/03/2020 3: 04 PM METALLIC YARN SLITTING MACHINE OPERATOR documented as of this encounter Miscellaneous Notes * Telephone Encounter - Humaira Peñaloza - 07/03/2023 11:42 AM CDT Outgoing call, left to schedule follow up with lila. Last seen 05/2022. documented in this encounter Plan of Treatment Upcoming Encounters Date Type Department Care Team (Late st Contact Info) Description 01/28/2025 9:15 AM METALLIC YARN SLITTING MACHINE OPERATOR Office Visit M [facility] Epilepsy Care [address], [address] [place] [address] Estefania Alvarado PA-C [facility] Ep[facility]psy Care [address] [facility] [address] [place], [place] [address] documented as of this encounter Visit Diagnoses Not on filedocumented in this encounter Additional Health Concerns Assessment Noted Time PHQ-9 Depression Total Score: 4 06/21/19 23 3:38 PM CDT documented as of this encounter Care Teams Veneer Measurer Relationship Specialty [place] [address] [place] [address] PCP - General Family Practice 07/21/13 April Crawford MD [address] [facility] [address] [place] [address] Neurology 03/09/15 April Crawford MD [address] [facility] [address] [place] [address] Assigned Neuroscience Provider 12/17/19 01/16/24 Estefania Alvarado PA-C [facility] Epilepsy Care [address] [facility] [address] [place] [address] Assigned Neuroscience Provider 02/16/24 documented as of this encounter
--- OUTSIDE RECORDS SUMMARY | 2024-04-01 05:10 | XMS_ITS | Clinical Summary ---
Author Organization [facility] Address [address], [place] [address] Care Team Providers Care Appeals Writer Name Role Phone Unassigned, Provider Primary Care Provider Unava ilable Source Comments You are receiving this document as you are listed as the primary care provider,follow-up provider, or the patient has been referred to you for consultation.This is in compliance with the Medicare and[facility] Hospital[facility] EHR Incentive Program,which states Providers who transition their patient to another setting of careor provider of care or refers their patient to another provider of care shouldprovide summary care record for each transition of care or referral. ideacts innovations Allergies Active Allergy Reactions Criticality Noted Date [...] yrs) 11/23/2009 Influenza IIV4 (Quadrivalent ) 0.5mL (17564) 12/03/2018,03/30/2018,12/23/2016,2014 Influenza, Unspecified Formulation 03/30/2018 MMR 01/30/1979 [...] Comments Blood Pressure 156/103 04/03/2023 6:57 PM HYDRAULIC PUNCH PRESS OPERATOR Pulse 124 04/03/2023 6:57 PM HYDRAULIC PUNCH PRESS OPERATOR Temperature 37.1 C (98.8 F) 04/03/2023 6:57 PM HYDRAULIC PUNCH PRESS OPERATOR Respiratory Rate 20 04/03/2023 6:57 PM HYDRAULIC PUNCH PRESS OPERATOR Oxygen Saturation 100% 04/03/2023 6:57 PM HYDRAULIC PUNCH PRESS OPERATOR Inhaled Oxygen Concentration - - Weight 133.5 kg (294 lb 6.4 oz) 04/01/2017 4:05 PM HYDRAULIC PUNCH PRESS OPERATOR Height 175.3 cm (5' 9) 04/01/2017 4:05 PM HYDRAULIC PUNCH PRESS OPERATOR Body Mass Index 43.48 04/01/2017 4:05 PM HYDRAULIC PUNCH PRESS OPERATOR Plan of Treatment Health Maintenance Due Date [...] CAD performed on 11/11/23 FDA Accredited Facility: [place] [address] Compared to: 03/31/2018 Foreign Image(S) Mammogram Bilateral Screening FINDINGS: Bilateral screening mammogram was performed with the assistance of Computer-Aided Detection and breast tomosynthesis. The breasts are heterogeneously dense, which may obscure small masses. There is no radiographic evidence of malignancy. Leon Engel MD RAD SETH from Last 3 Months or Most Recently Relevant to Health Maintenance Care Teams Appeals Writer Relationship Specialty Start Date End Date Unassigned, Provider [address] [place] [address] PCP - General 11/28/99
--- OUTSIDE RECORDS SUMMARY | 2024-04-01 05:10 | XMS_ITS | Clinical Summary ---
Author Organization [facility] Address [place], [place] [address] Care Team Providers Care Director Recreation Name Role Phone Tracee Valle DO Primary Care Provider [phone] Allergies Active Allergy Reactions Criticality Noted Date [...] Sex Assigned at Female 03/30/2020 9:14 AM DOBBY LOOM CHAIN PEGGER Legal Sex Female 6:36 AM DOBBY LOOM CHAIN PEGGER Gender Identity Female 03/30/2020 9:14 AM DOBBY LOOM CHAIN PEGGER Sexual Orientation Straight 03/30/2020 9: 14 AM DOBBY LOOM CHAIN PEGGER Obstetrics History Last Filed Vital Signs Vital Sign Reading Time Taken Comments Blood Pressure 122/86 06/03/2023 2:07 PM CDT Pulse 96 06/03/2023 2:07 PM CDT Temperature 36.7 C (98.1 F) 06/03/2023 2:07 PM CDT Respiratory Rate 15 06/29/2018 3:54 PM CDT Oxygen Saturation 97% 04/04/2023 1:37 PM DOBBY LOOM CHAIN PEGGER Inhaled Oxygen Concentration - - Weight 135.6 kg (299 lb) 06/03/2023 2:07 PM CDT Height 172.7 cm (5' 8) 04/04/2023 1:37 PM DOBBY LOOM CHAIN PEGGER Body Mass Index 45.46 04/04/2023 1:37 PM DOBBY LOOM CHAIN PEGGER Plan of Treatment Upcoming Encounters Date Type Department Care Team (Late st Contact Info) Description 04/01/2024 9:00 AM DOBBY LOOM CHAIN PEGGER Office Visit [facility] [address] [place] [address] [place] [address] [place] [address] Health Maintenance Due Date Last Done Comments [...] MAMMO BILAT SCREENING Routine 03/31/2018 5:35 PM DOBBY LOOM CHAIN PEGGER Breast cancer screening LIPID PANEL W REFLEX MEASURED LDL Routine 03/30/2018 4:42 PM DOBBY LOOM CHAIN PEGGER Morbid exogenous obesity (HC) TRACK COACH THIN PREP PAP SCREEN IMAGED Routine 03/30/2018 4:19 PM DOBBY LOOM CHAIN PEGGER Cervical cancer screening from Last 3 Months or Most Recently Relevant to Health Maintenance Results * XR MAMMO BILAT SCREENING (03/31/2018 5:35 PM DOBBY LOOM CHAIN PEGGER) Anatomical Region Laterality Modality BREASTS, Breast Left, Breast Right Bilateral Mammography Impressions 04/01/2018 10:43 AM DOBBY LOOM CHAIN PEGGER There is no radiographic evidence for malignancy. Recommend annual mammograms. A lay language report of this examination will be provided to the patient. MAMMOGRAM ASSESSMENT: ACR 1 Negative Narrative 04/01/2018 10:43 AM DOBBY LOOM CHAIN PEGGER XR MAMMO BILAT SCREENING [[id number]] CLINICAL HISTORY: This is an asymptomatic 42 [...] W REFLEX MEASURED LDL (03/30/2018 4:42 PM DOBBY LOOM CHAIN PEGGER) CHOLESTEROL,TOTAL 137 100 - 199 mg/dL 03/31/2018 4:34 PM DOBBY LOOM CHAIN PEGGER [facility] TRIGLYCERIDES 218(H) <150 mg/dL 03/31/2018 4:34 PM DOBBY LOOM CHAIN PEGGER [facility] HDL CHOLESTEROL 28(L) >40 mg/dL 9 4:34 PM DOBBY LOOM CHAIN PEGGER [facility] NON-HDL CHOLESTEROL 109 <145 mg/dl 03/31/2018 4:34 PM DOBBY LOOM CHAIN PEGGER [facility] CHOL/HDL RATIO 4.89(H) <4.50 03/31/2018 4:34 PM DOBBY LOOM CHAIN PEGGER [facility] LDL CHOLESTEROL 65 <=130 mg/dL 03/31/2018 4:34 PM DOBBY LOOM CHAIN PEGGER [facility] PROVIDER ORDERED STATUS RANDOM 03/31/2018 4:34 PM DOBBY LOOM CHAIN PEGGER [facility] Blood BLOOD SPECIMEN / Unknown Venipuncture / Unknown 03/30/2018 4:42 PM DOBBY LOOM CHAIN PEGGER 03/30/2018 4:43 PM DOBBY LOOM CHAIN PEGGER us Tracee Valle DO CHEMISTRY Final Resul t [facility] [address] [place] [address], * TRACK COACH THIN PREP PAP SCREEN IMAGED (03/30/2018 4:19 PM DOBBY LOOM CHAIN PEGGER) Case Report Gynecologic Cytology Report Case: [id number] Authorizing Provider: Tracee Valle DO Collected: 03/30/2018 1619 Ordering Location: [facility] Received: 03/30/2018 1636 Clinic First Screen: Arely Vargas Specimen: TRACK COACH ThinPrep Vial Screening, Cervical 04/07/2018 2:38 PM DOBBY LOOM CHAIN PEGGER [facility] INTERPRETATION/ RESULT NEGATIVE FOR INTRAEPITHELIAL LESION OR MALIGNANCY (NIL) (none) 04/07/2018 2:38 PM DOBBY LOOM CHAIN PEGGER [facility] IMEN ADEQUACY Satisfactory for evaluation Endocervical component present 04/07/2018 2:38 PM DOBBY LOOM CHAIN PEGGER [facility] HPV REQUEST HPV if ASCUS 04/07/2018 2:38 PM DOBBY LOOM CHAIN PEGGER [facility] Date of LMP 03/23/2018 04/07/2018 2:38 PM DOBBY LOOM CHAIN PEGGER [facility] Last Pap Date unkown 04/07/2018 2:38 PM DOBBY LOOM CHAIN PEGGER [facility] Last Pap Result NIL 9 2:38 PM DOBBY LOOM CHAIN PEGGER [facility] Abnormal Pap or [place] Bx in last 5 years No 04/07/2018 2:38 PM DOBBY LOOM CHAIN PEGGER [facility] Menstrual Status Regular Periods 04/07/2018 2:38 PM DOBBY LOOM CHAIN PEGGER [facility] [place] Bx Done Today No 04/07/2018 2:38 PM DOBBY LOOM CHAIN PEGGER [facility] Additional Information None given 04/07/2018 2:38 PM DOBBY LOOM CHAIN PEGGER [facility] Automated Review Successful 04/07/2018 2:38 PM DOBBY LOOM CHAIN PEGGER [facility] Comment:Specimen processed s uccessfully by automated utility engineer device, ThinPrep Imaging System, [employer] Note The pap test is a [...] lesions. Cytology is screened and interpreted at [facility] - [address], [place] [address] and [facility] - [address]; [place] [address] and [facility] - [address]; [place] [address] and [facility] [address]; [place] [address] 04/07/2018 2:38 PM DOBBY LOOM CHAIN PEGGER [facility] Other (Cervical) Non-Blood / Unknown 03/30/2018 4:19 PM DOBBY LOOM CHAIN PEGGER 03/30/2018 4:36 PM DOBBY LOOM CHAIN PEGGER Tracee Valle DO PATHOLOGY/CYTOLOGY Final Re sult [facility] [address] [place] [address], from Last 3 Months or Most Recently Relevant to Health Maintenance Insurance [employer] Care Teams Director Recreation Relationship Specialty [place] [address] [place], [place] [id number] PCP - General Family Practice 03/30/18
--- OUTSIDE RECORDS SUMMARY | 2024-04-01 05:10 | XMS_ITS | Encounter Summary ---
Author Organization [place] Address [address] [place] [address]. [place] [address] Care Team Providers Care Rope Coiling Machine Operator Name Role Phone Melissa Wilson MD Primary Care Provider + [phone] April Crawford MD Unavailable April Crawford MD Unavailable Estefania Alvarado PA-C Unavailable [phone] Encounter Details Date Type Department Care Team (Late st Contact Info) Description 05/08/2021 MyC Medical Advice [facility] Epilepsy Care [address], [address] [place] [address] Kelsi Hou, [place] Social History Tobacco Use Types Packs/Day Years Used Date Smoking Tobacco: Never Smokeless Tobacco: Never Alcohol Use Standard Drinks/Week Comments Not Asked 0 (1 standard drink = 0.6 oz pur e alcohol) PHQ-2 Answer Date Recorded PHQ-2 Score 0 05/16/2020 Comments No Sex and Gender Information Value Date Recorded Sex Assigned at Female 05/03/2020 3:04 PM JOB DEVELOPER FOR DEAF ADULTS Legal Sex Female 3:38 AM JOB DEVELOPER FOR DEAF ADULTS Gender Identity Female 05/03/2020 3:04 PM JOB DEVELOPER FOR DEAF ADULTS Sexual Orientation Straight 05/03/2020 3: 04 PM JOB DEVELOPER FOR DEAF ADULTS documented as of this encounter Plan of Treatment Upcoming Encounters Date Type Department Care Team (Late st Contact Info) Description 01/28/2025 9:15 AM JOB DEVELOPER FOR DEAF ADULTS Office Visit [facility] [address], [address] [place] [address] Estefania Alvarado PA-C [facility] [address] [facility] [address] [place] [address] documented as of this encounter Visit Diagnoses Not on filedocumented in this encounter Additional Health Concerns Assessment Noted Time PHQ-9 Depression Total Score: 12 016 7:19 AM CDT documented as of this encounter Care Teams Rope Coiling Machine Operator Relationship Specialty [place] [address] [place] [address] PCP - General Family Practice 07/21/13 April Crawford MD [address] [facility] [address] [place] [address] Neurology 03/09/15 April Crawford MD [address] [facility] [address] [place] [address] Assigned Neuroscience Provider 12/17/19 01/16/24 Estefania Alvarado PA-C [facility] [address] [facility] [address] [place] [address] Assigned Neuroscience Provider 02/16/24 documented as of this encounter
--- OUTSIDE RECORDS SUMMARY | 2024-04-01 05:10 | XMS_ITS | Encounter Summary ---
Author Organization [place] Address [address] [place] [address]. [place] [address] Care Team Providers Care Electric Trucker Name Role Phone Melissa Wilson MD Primary Care Provider + [phone] April Crawford MD Unavailable April Crawford MD Unavailable Estefania Alvarado PA-C Unavailable [phone] Encounter Details Date Type Department Care Team (Late st Contact Info) Description 04/18/2016 MyC Medical Advice [facility] [address] [place] [address] April Crawford MD [address] [facility] [address] [place] [address] Social History Tobacco Use Types Packs/Day Years Used Date Smoking Tobacco: Never Smokeless Tobacco: Never Alcohol Use Standard Drinks/Week Comments Not Asked 0 (1 standard drink = 0.6 oz pur e alcohol) Comments No Sex and Gender Information Value Date Recorded Sex Assigned at Female 05/03/2020 3:04 PM PRESS HAND Legal Sex Female 3:38 AM PRESS HAND Gender Identity Female 05/03/2020 3:04 PM PRESS HAND Sexual Orientation Straight 05/03/2020 3: 04 PM PRESS HAND documented as of this encounter Plan of Treatment Upcoming Encounters Date Type Department Care Team (Late st Contact Info) Description 01/28/2025 9:15 AM PRESS HAND Office Visit [facility] Epilepsy Care [address] [place] [address] Estefania Alvarado PA-C [facility] [address] [facility] [address] [place] [address] documented as of this encounter Visit Diagnoses Not on filedocumented in this encounter Additional Health Concerns Assessment Noted Time PHQ-9 Depression Total Score: 12 016 7:19 AM CDT documented as of this encounter Care Teams Electric Trucker Relationship Specialty Start [place] [address] [place] [address] PCP - General Family Practice 07/21/13 April Crawford MD [address] [facility] [address] [place] [address] Neurology 03/09/15 April Crawford MD [address] [facility] [address] [place] [address] Assigned Neuroscience Provider 12/17/19 01/16/24 Estefania Alvarado PA-C [facility] [address] [facility] [address] [place] [address] Assigned Neuroscience Provider 02/16/24 documented as of this encounter
[2024-04-01 05:14] LABS: Basophils Absolute Auto 0.01 K/uL (0.00-0.30); Basophils Percent Auto 0.2 % (0.0-3.0); Eosinophils Absolute Auto 0.01 K/uL (0.00-0.50); Eosinophils Percent Auto 0.2 % (0.0-7.0); Hematocrit 38.2 % (33.0-51.0); Immature Granulocytes Abs Auto 0.03 K/uL (0.00-0.30); Immature Granulocytes Pct Auto 0.6 %; Lymphocytes Absolute Auto 1.28 K/uL (0.90-2.90); Lymphocytes Percent Auto 23.9 % (20-44); Mean Corpuscular HGB Conc 31 gm/dL (32-36); Mean Corpuscular Hemoglobin 25 pg (26-34); Mean Corpuscular Volume 78 fL (80-100); Monocytes Percent Auto 11.9 % (0.0-11.0); Neutrophils Absolute Auto 3.39 K/uL (1.7-7.0); Neutrophils Percent Auto 63.2 % (42.0-72.0); Platelet Count* 255 K/uL (140-440); RDW Coefficient of Variation % 16.3 % (11.5-15.5); Red Blood Count 4.87 m/uL (4.00-5.20); White Blood Count* 5.36 K/uL (4.50-11.00)
[2024-04-01 05:15] LABS: PCR FLU A POSITIVE PCR FLU A (Negative); PCR FLU B Negative PCR FLU B (Negative); PCR RSV Negative PCR RSV (Negative); SARS PCR* Negative SARS-CoV-2 (Negative)
[2024-04-01 05:17] LABS: Slide Review Reflex No
[2024-04-01 05:27] VITALS: BP 135/89; PULSE 112; RESP 24; TEMP 36.6; O2SAT 99
[2024-04-01 05:27] LABS: Appearance Urine Clear (Clear); Bilirubin Urine Negative (Negative); Blood Urine Trace-intact (Negative); Color Urine Yellow (Yellow); Glucose Urine Negative (Negative); Ketones Urine Trace (Negative); Leukocyte Esterase Urine Trace (Negative); Nitrite Urine Negative (Negative); Protein Urine 1+ (Negative); Specific Gravity Urine 1.025 (1.000-1.030); Urobilinogen Urine 0.2 (0.2-1.0); pH Urine 5.5 (5.0-8.5)
[2024-04-01 05:27] LABS: Chloride* 107 mmol/L (96-114); Potassium* 4.1 mmol/L (3.6-5.1); Sodium* 137 mmol/L (135-149)
[2024-04-01 05:29] LABS: Ur HCG Qualitative* Negative (Negative)
[2024-04-01 05:30] LABS: Anion Gap 12 mEq/L (7-15); Blood Urea Nitrogen* 15 mg/dL (5-24); Carbon Dioxide* 18 mmol/L (20-32); Creatinine* 0.9 mg/dL (0.5-1.5); Est. Creatinine Clearance* 81.63; Estimated Glomerular Filt Rate 80 ml/min
[2024-04-01 05:31] LABS: Glucose* 132 mg/dL (60-115)
[2024-04-01 05:32] LABS: D Dimer Quantitative* 0.53 ug/ml (0.00-0.50)
[2024-04-01 05:33] LABS: C Reactive Protein* 2.7 mg/dL (0.5-1.0)
[2024-04-01 05:34] LABS: RBC Urine 0-2 (0-2)
[2024-04-01 05:35] LABS: Amorphous Sediment Urine Few; Bacteria Urine Moderate; Squamous Epithelial Cell Urine Moderate (None-Few)
[2024-04-01 05:49] VITALS: BP 135/89; PULSE 112; RESP 24; TEMP 36.6
== END 2024-04-01 05:49 | disposition home or self-care (01) ==
PROVIDERS: Emergency Provider Family Medicine; PCP Physician Assistant Medical
DX: J10.1 Influenza due to other identified influenza virus with other respiratory manifestations (principal)
CPT/HCPCS: 36415; 71046; 80048; 81001; 81003; 81025; 84484; 85025; 85379; 86140; 87086; 87631; 93005; 99284

== ENCOUNTER 2024-11-12 06:57 | Outpatient (CLI) | payer BC, SELFPAY ==
--- NOTE | 2024-11-12 08:32 | P.ANES_ITS ---
Anesthesia Charges Start Date/Time Anesthesia Start Date: 11/12/24 Anesthesia Start Time: 07:58 Stop Date/Time Anesthesia Stop Date: 11/12/24 Anesthesia Stop Time: 08:28 Coding CPT Codes CPT Codes: ANES LWR INTST NDSC NOS - 51439 ([id number]) P3 - PATIENT W/SEVERE SYS DISEASE, QK - SENIOR PROJECT COORDINATOR 2-4 CNCRNT ANES PROC, QX - CLIENT TECHNOLOGIES ANALYST SVC W/ MD MED DIRECTION
--- NOTE | 2024-11-12 08:32 | W.ANESCHARGE ---
Anesthesia Charges Start Date/Time Anesthesia Start Date: 11/12/24 Anesthesia Start Time: 07:58 Stop Date/Time Anesthesia Stop Date: 11/12/24 Anesthesia Stop Time: 08:28 Coding CPT Codes CPT Codes: ANES LWR INTST NDSC NOS - 86664 ([id number]) P3 - PATIENT W/SEVERE SYS DISEASE, QK - SYSTEMS PROGRAMMER 2-4 CNCRNT ANES PROC, QX - DIORAMA MODEL MAKER SVC W/ MD MED DIRECTION
--- NOTE | 2024-11-12 10:20 | P.ANES_ITS ---
Anesthesia Charges Start Date/Time Anesthesia Start Date: 11/12/24 Anesthesia Start Time: 07:58 Stop Date/Time Anesthesia Stop Date: 11/12/24 Anesthesia Stop Time: 08:28 Coding CPT Codes CPT Codes: ANES LWR INTST NDSC NOS - 94552 ([id number]) QK - SPRING FORMER MACHINE 2-4 CNCRNT ANES PROC, QX - BRUSH POLISHER SVC W/ MED DIRECTION, P3 - PATIENT W/SEVERE SYS DISEASE
--- NOTE | 2024-11-12 10:20 | W.ANESCHARGE ---
Anesthesia Charges Start Date/Time Anesthesia Start Date: 11/12/24 Anesthesia Start Time: 07:58 Stop Date/Time Anesthesia Stop Date: 11/12/24 Anesthesia Stop Time: 08:28 Coding CPT Codes CPT Codes: ANES LWR INTST NDSC NOS - 87211 ([id number]) QK - PICKLER HELPER 2-4 CNCRNT ANES PROC, QX - BASKETBALL COACH SVC W/ MED DIRECTION, P3 - PATIENT W/SEVERE SYS DISEASE
== END 2024-11-12 06:58 | disposition home or self-care (01) ==
LOC: OP CLINIC 06:57
PROVIDERS: Visit Provider Internal Medicine Gastroenterology
DX: Z12.11 Encounter for screening for malignant neoplasm of colon (principal); D12.5 Benign neoplasm of sigmoid colon; D12.3 Benign neoplasm of transverse colon
CPT/HCPCS: 00811; 00812; 45385; 88305; J2704